=== PATIENT | female | born 1995 | race American Indian/Alaskan Native ===

== ENCOUNTER 2017-06-02 14:44 | Emergency (ER) | payer OTHER ==
[2017-06-02 14:52] VITALS: BMI 24.2
[2017-06-02 14:57] VITALS: TEMP 99.2; O2SAT 100
--- NOTE | 2017-06-02 16:18 | ED PDOC ---
Arrival/HPI - General Chief Complaint: Abdominal Pain Time Seen by Provider: 06/02/17 15:52 Historian: Patient - History of Present Illness Narrative History of Present Illness (Text): 06/02/17 16:13 Patient is a 22 yo female, LMP 6 days ago, presents to Emergency Department complaining of bilateral lower abdominal pain, right greater than left, for past 2-3 days. Patient also reportedly has had vaginal spotting yesterday and today, with "clot of tissue" when she urinated yesterday. Denies dysuria or frequency. Denies nausea vomiting or diarrhea. States that her last menstrual period ended 6 days ago and was heavier than usual with larger clots than usual. She states that she is sexually active but states she believes that she is not . Denies back pain. Denies chest pain or shortness of breath. Past Medical History - Past History Past History: No Previous - Infectious Disease Hx of Infectious Diseases: None - Tetanus Immunization Tetanus Immunization: Up to Date - Cardiac Hx Cardiac Disorders: No - Pulmonary Hx Respiratory Disorders: No - Neurological Hx Neurological Disorder: Yes Hx Migraine: Yes - HEENT Hx HEENT Disorder: No - Renal Hx Renal Disorder: No - Endocrine/Metabolic Hx Endocrine Disorders: No - Hematological/Oncological Hx Blood Disorders: No - Integumentary Hx Dermatological Disorder: No - Musculoskeletal/Rheumatological Hx Musculoskeletal Disorders: No - Gastrointestinal Hx Gastrointestinal Disorders: No - Genitourinary/Gynecological Hx Genitourinary Disorders: No - Psychiatric Hx Psychophysiologic Disorder: No Hx Substance Use: No Family/Social History Family/Social History: Unknown Family HX Smoking Status: Never Smoked Hx Alcohol Use: Yes Hx Substance Use: No Allergies/Home Meds Allergies/Adverse Reactions: Allergies No Known Allergies Allergy (Verified 01/03/16 23:13) Review of Systems - Review of Systems Constitutional: absent: Fevers Eyes: absent: Vision Changes ENT: absent: Hearing Changes Respiratory: absent: SOB Cardiovascular: absent: Chest Pain Gastrointestinal: Abdominal Pain. absent: Constipation, Diarrhea, Hematochezia , Hematemesis, Anorexia, Food Intolerance Genitourinary Female: Vaginal Bleeding. absent: Dysuria, Frequency, Hematuria, Urine Output Changes Physical Exam Vital Signs Reviewed: Yes Vital Signs Temp Pulse Resp BP Pulse Ox 06/02/17 20:24 68 18 118/76 100 06/02/17 14:44 99.2 F 73 16 106/73 100 Temperature: Afebrile Appearance: Positive for: Non-Toxic Pain Distress: Mild Mental Status: Positive for: Alert and Oriented X 3 - Systems Exam Head: Present: Atraumatic Pupils: Present: PERRL Mouth: Present: Moist Mucous Membranes Pharnyx: No: ERYTHEMA Nose (Internal): Present: Normal Inspection Neck: Present: Normal Range of Motion. No: Meningeal Signs Respiratory/Chest: Present: Clear to Auscultation. No: Respiratory Distress Cardiovascular: Present: Regular Rate and Rhythm Abdomen: Present: Tenderness (mild suprapubic, mild rlq pain). No: Peritoneal Signs, Rebound, Guarding, McBurney's Point Tender Rectal: No: Gross Blood Genitourinary/Pelvic Exam: Present: Other (pelvic exam performed with SHALINI Kenney jitterbug operator, no active bleeding, no external lesions or clots or erythema or edema, no adnexal masses palpated) Back: No: CVA Tenderness, Midline Tenderness Upper Extremity: Present: NORMAL PULSES. No: Cyanosis, Edema Lower Extremity: Present: NORMAL PULSES, Neurovascularly Intact Skin: Present: Warm Psychiatric: Present: Alert Medical Decision Making ED Course and Treatment: 06/02/17 19:01 Patient reports heavier menstrual period last week. Bleeding stopped than spotting started yesterday. Currently mild lower abdominal pain. Denies urinary symptoms. CBC obtained due to hx of heavier bleeding, hgb unremarkable. Patient not tachycardic or hypotensive. No fever, no vomiting or diarrhea. UA negative. Ultrasound ordered due to lower abdominal pain with bleeding. Case endorsed to Dr. Arellano pending urinalysis evaluation and ultrasound. - Lab Interpretations Microbiology Results: Microbiology Results 06/02/17 21:00 Urine,Clean Catch Urine Culture - Final Escherichia Coli Lab Results: 06/02/17 16:16 06/02/17 16:16 Lab Results 06/02/17 19:52: Urine Color Yellow, Urine Appearance Clear, Urine pH 6.0, Ur Specific [place] 1.025, Urine Protein Negative, Urine Glucose (UA) Negative, Urine Ketones Trace H, Urine Blood Negative, Urine Nitrate Positive H, Urine Bilirubin Negative, Urine Urobilinogen 1.0 H, Ur Leukocyte Esterase Trace H, Urine RBC 0 - 2, Urine WBC 2 - 5, Ur Epithelial Cells 6 - 8, Amorphous Sediment Few, Urine Bacteria Many, Urine Other Trichomonas, Urine HCG, Qual Negative 06/02/17 16:16: Beta HCG, Quant < 2.39 06/02/17 16:16: Sodium 138, Potassium 3.7, Chloride 106, Carbon Dioxide 24, Anion Gap 11, BUN 12, Creatinine 0.6 L, Est GFR ( Amer) > 60, Est GFR ( Non-Af Amer) > 60, Random Glucose 81, Calcium 9.0, Total Bilirubin 0.4, AST 17, ALT 25, Alkaline Phosphatase 58, Total Protein 6.6, Albumin 3.9, Globulin 2.8, Albumin/Globulin Ratio 1.4 06/02/17 16:16: PT 13.6 H, INR 1.19 H, APTT 34.9 06/02/17 16:16: WBC 5.6 D, RBC 4.24, Hgb 12.2, Hct 37.0, MCV 87.3, MCH 28.8, MCHC 33.0, RDW 13.4, Plt Count 228, MPV 11.6 H, Gran % 51.4, Lymph % (Auto) 36.8 H, [place] % (Auto) 5.8, Eos % (Auto) 4.7, Baso % (Auto) 1.3, Gran # 2.86, Lymph # 2.0, [place] # 0.3, Eos # 0.3, Baso # 0.07 - RAD Interpretation Radiology Orders: 06/02/17 16:08 TRANSVAGINAL [US] Stat - Medication Orders Current Medication Orders: Discontinued Medications Cephalexin Monohydrate (Keflex) 500 mg PO STAT ONE PRN Reason: Protocol Stop: 06/02/17 21:16 Last Admin: 06/02/17 21:17 Dose: 500 mg Metronidazole (Flagyl) 2,000 mg PO STAT STA PRN Reason: Protocol Stop: 06/02/17 20:58 Last Admin: 06/02/17 21:16 Dose: 2,000 mg Disposition/Present on Arrival - Present on Arrival Any Indicators Present on Arrival: No History of DVT/PE: No History of Uncontrolled Diabetes: No Urinary Catheter: No History of Decub. Ulcer: No History Surgical Site Infection Following: None - Disposition Have Diagnosis and Disposition been Completed?: Yes Diagnosis: Ovarian cyst, Dysmenorrhea, UTI (urinary tract infection), Trichomoniasis Disposition: HOME/ ROUTINE Disposition Time: 19:00 Patient Plan: Observation Condition: FAIR Discharge Instructions (ExitCare): Dysmenorrhea (ED), Ovarian Cyst (ED), Trichomoniasis (ED), Urinary Tract Infection in Women (ED) Additional Instructions: Drink plenty of liquids/take meds as prescribed/advil as directed/follow up with your machine setter sheet metal this week Prescriptions: Cephalexin [cephalexin] 500 mg PO BID #14 cap Forms: [employer] (Belarusian)
[2017-06-02 16:52] LABS: BASO # 0.07 K/mm3 (0.0-2.0); BASO % 1.3 % (0.0-3.0); EOS # 0.3 (0.0-0.7); EOS % 4.7 % (1.5-5.0); GRAN # 2.86 (1.4-6.5); GRAN % 51.4 % (50.0-68.0); HEMOGLOBIN 12.2 g/dL (12.0-16.0); LYMPH % 36.8 % (22.0-35.0); MEAN CELL VOLUME 87.3 fl (80.0-105.0); MEAN CORPUSCULAR HEMOGLOBIN 28.8 pg (25.0-35.0); MEAN PLATELET VOLUME 11.6 fl (7.0-11.0); MONO # 0.3 (0.1-0.6); MONO % 5.8 % (1.0-6.0); RBC 4.24 10^6/uL (3.5-6.1); RED CELL DISTRIBUTION WIDTH 13.4 % (11.5-14.5); WHITE BLOOD COUNT 5.6 10^3/ul (4.5-11.0)
[2017-06-02 16:54] LABS: ALB/GLOB RATIO 1.4 (1.1-1.8); ALBUMIN 3.9 g/dL (3.0-4.8); ALT/SGPT 25 U/L (7-56); AST/SGOT 17 U/L (14-36); BLOOD UREA NITROGEN 12 mg/dL (7-21); GFR AFRICAN-AMERICAN > 60; GFR NON-AFRICAN AMERICAN > 60
[2017-06-02 17:05] LABS: INR 1.19 (0.93-1.08); PARTIAL THROMBOPLASTIN TIME 34.9 Seconds (25.1-36.5); PROTHROMBIN TIME 13.6 SECONDS (9.4-12.5)
--- NOTE | 2017-06-02 19:23 | ED PDOC ---
Physical Exam Vital Signs Reviewed: Yes Vital Signs Temp Pulse Resp BP Pulse Ox 06/02/17 20:24 68 18 118/76 100 06/02/17 14:44 99.2 F 73 16 106/73 100 Temperature: Afebrile Blood Pressure: Normal Pulse: Regular Respiratory Rate: Normal Appearance: Positive for: Well-Appearing, Non-Toxic, Comfortable Pain Distress: None Mental Status: Positive for: Alert and Oriented X 3 Medical Decision Making ED Course and Treatment: 06/02/17 19:21: Patient endorsed to me by Dr. Hensley. Pending Transvaginal Ultrasound results. Will re-evaluate and disposition. - Lab Interpretations Lab Results: 06/02/17 16:16 06/02/17 16:16 Lab Results 06/02/17 19:52: Urine Color Yellow, Urine Appearance Clear, Urine pH 6.0, Ur Specific [place] 1.025, Urine Protein Negative, Urine Glucose (UA) Negative, Urine Ketones Trace H, Urine Blood Negative, Urine Nitrate Positive H, Urine Bilirubin Negative, Urine Urobilinogen 1.0 H, Ur Leukocyte Esterase Trace H, Urine RBC 0 - 2, Urine WBC 2 - 5, Ur Epithelial Cells 6 - 8, Amorphous Sediment Few, Urine Bacteria Many, Urine Other Trichomonas, Urine HCG, Qual Negative 06/02/17 16:16: Beta HCG, Quant < 2.39 06/02/17 16:16: Sodium 138, Potassium 3.7, Chloride 106, Carbon Dioxide 24, Anion Gap 11, BUN 12, Creatinine 0.6 L, Est GFR ( Amer) > 60, Est GFR ( Non-Af Amer) > 60, Random Glucose 81, Calcium 9.0, Total Bilirubin 0.4, AST 17, ALT 25, Alkaline Phosphatase 58, Total Protein 6.6, Albumin 3.9, Globulin 2.8, Albumin/Globulin Ratio 1.4 06/02/17 16:16: PT 13.6 H, INR 1.19 H, APTT 34.9 06/02/17 16:16: WBC 5.6 D, RBC 4.24, Hgb 12.2, Hct 37.0, MCV 87.3, MCH 28.8, MCHC 33.0, RDW 13.4, Plt Count 228, MPV 11.6 H, Gran % 51.4, Lymph % (Auto) 36.8 H, [place] % (Auto) 5.8, Eos % (Auto) 4.7, Baso % (Auto) 1.3, Gran # 2.86, Lymph # 2.0, [place] # 0.3, Eos # 0.3, Baso # 0.07 - RAD Interpretation Radiology Orders: 06/02/17 16:08 TRANSVAGINAL [US] Stat - Scribe Statement The provider has reviewed the documentation as recorded by the Scribe Lili Eaton Provider Scribe Attestation: All medical record entries made by the Scribe were at my direction and personally dictated by me. I have reviewed the chart and agree that the record accurately reflects my personal performance of the history, physical exam, medical decision making, and the department course for this patient. I have also personally directed, reviewed, and agree with the discharge instructions and disposition. Disposition/Present on Arrival - Present on Arrival Any Indicators Present on Arrival: No History of DVT/PE: No History of Uncontrolled Diabetes: No Urinary Catheter: No History of Decub. Ulcer: No History Surgical Site Infection Following: None - Disposition Have Diagnosis and Disposition been Completed?: Yes Diagnosis: Ovarian cyst, Dysmenorrhea, UTI (urinary tract infection), Trichomoniasis Disposition: HOME/ ROUTINE Disposition Time: 20:54 Patient Plan: Discharge Patient Problems: Current Active Problems Problem Status Onset Dysmenorrhea Acute Ovarian cyst Acute Condition: FAIR Discharge Instructions (ExitCare): Ovarian Cyst (ED), Dysmenorrhea (ED), Urinary Tract Infection in Women (ED), Trichomoniasis (ED) Additional Instructions: Drink plenty of liquids/take meds as prescribed/advil as directed/follow up with your vascular physician this week Prescriptions: Cephalexin [cephalexin] 500 mg PO BID #14 cap Forms: [employer] (Chinese)
--- NOTE | 2017-06-02 19:52 | US ---
EXAM: US Pelvis Complete, Transabdominal CLINICAL HISTORY: 22 years old, female; Pain; Pelvic pain; Additional info: Lower abdominal pain with bleeding, neg preg TECHNIQUE: Real-time transabdominal pelvic ultrasound (complete) with image documentation. COMPARISON: CT - ABD PELVIS W/O PO OR IV CONT 2016-05-10 22:45 FINDINGS: Uterus/cervix: Uterus measures 7.6 x 4.2 x 6.7 cm in size. No myometrial mass. Endometrium: 0.8 cm in thickness. Right ovary: 3.4 x 2.7 x 2.1 cm in size. 1.6 x 1.4 x 1.6 cm anechoic lesion. Small follicles. Normal flow. Left ovary: 3.1 x 2.2 x 3.0 cm in size. 1.3 x 1.6 x 1.3 cm anechoic lesion. Small follicles. Normal flow. Free fluid: No significant free fluid. Bladder: Unremarkable as visualized. IMPRESSION: 1. RIGHT ovarian cyst. 2. LEFT ovarian cyst. EXAM: US Pelvis, Transvaginal CLINICAL HISTORY: 22 years old, female; Pain; Pelvic pain; Additional info: Lower abdominal pain with bleeding, neg preg TECHNIQUE: Real-time transvaginal pelvic ultrasound (complete) with image documentation. Transvaginal imaging was used for better evaluation of the endometrium and adnexa. COMPARISON: CT - ABD PELVIS W/O PO OR IV CONT 2016-05-10 22:45 FINDINGS: Uterus/cervix: Uterus measures 7.6 x 4.2 x 6.7 cm in size. No myometrial mass. Endometrium: 0.8 cm in thickness. Right ovary: 3.4 x 2.7 x 2.1 cm in size. 1.6 x 1.4 x 1.6 cm anechoic lesion. Small follicles. Normal flow. Left ovary: 3.1 x 2.2 x 3.0 cm in size. 1.3 x 1.6 x 1.3 cm anechoic lesion. Small follicles. Normal flow. Free fluid: No significant free fluid. Bladder: Empty bladder which cannot be evaluated with this probe.
[2017-06-02 20:25] VITALS: BP 118/76; PULSE 68; RESP 18
[2017-06-02 20:30] LABS: URINE BILIRUBIN NEGATIVE (NEGATIVE); URINE BLOOD NEGATIVE (NEGATIVE); URINE GLUCOSE (UA) NEGATIVE (NEGATIVE); URINE LEUKOCYTE ESTERASE TRACE Leu/uL (NEGATIVE); URINE NITRATE POSITIVE (NEGATIVE); URINE PROTEIN NEGATIVE mg/dL (<30 mg/dL)
[2017-06-02 20:36] LABS: HCG,QUALITATIVE URINE NEGATIVE (NEGATIVE); URINE APPEARANCE CLEAR (CLEAR); URINE COLOR YELLOW (YELLOW)
[2017-06-02 20:39] LABS: URINE AMORPHOUS SEDIMENT FEW; URINE BACTERIA MANY (NEG); URINE RBC 0 - 2 /hpf (0-2)
== END 2017-06-02 21:21 | disposition home or self-care (01) ==
LOC: ED 14:44
DX: N39.0 Urinary tract infection, site not specified (principal); N94.6 Dysmenorrhea, unspecified; A59.9 Trichomoniasis, unspecified; N83.202 Unspecified ovarian cyst, left side; N83.201 Unspecified ovarian cyst, right side